=== PATIENT | male | born 1960 | race Caucasian/White ===

== ENCOUNTER 2018-12-04 11:17 | Emergency (ER) | payer MEDICAID ==
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
== END 2018-12-04 12:45 | disposition home or self-care (01) ==
LOC: JD.ED 11:17
DX: L03.115 Cellulitis of right lower limb (principal); L72.3 Sebaceous cyst; I10 Essential (primary) hypertension; Z79.899 Other long term (current) drug therapy
CPT/HCPCS: 99283

== ENCOUNTER 2019-02-10 13:13 | Emergency (ER) | payer SELFPAY ==
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
--- NOTE | 2019-02-10 14:21 | CR ---
Right hand: Four views of the right hand were obtained. Comparison: No previous study. Soft tissue swelling is identified. Mild deformity within the base of the distal phalanx of the 3rd digit is seen compatible with old healed fracture. No acute fracture, dislocation or other bony abnormality is seen. Impression: 1. Soft tissue swelling. Other finding believed to be incidental as noted above. 2. No acute bony abnormality is identified on right hand exam. Diagnostic code #2
== END 2019-02-10 14:45 | disposition home or self-care (01) ==
LOC: JD.ED 13:13
DX: M79.641 Pain in right hand (principal); I10 Essential (primary) hypertension; Z79.899 Other long term (current) drug therapy
CPT/HCPCS: 73130-26-RT; 73130-RT; 99283-25

== ENCOUNTER 2019-08-29 15:41 | Emergency (ER) | payer MEDICAID ==
[2019-08-29] MEDS ORDERED: predniSONE 20 MG Tab PO ONE (16:12)
--- NOTE | 2019-08-29 17:45 | EDM.PDOC ---
ED HPI GENERAL MEDICAL PROBLEM - General Chief Complaint: Allergic Reaction Stated Complaint: SKIN COMPLAINT/POSS ALLERGIC REACTION Time Seen by Provider: 08/29/19 15:53 Source of Information: Reports: Patient, RN Notes Reviewed - History of Present Illness INITIAL COMMENTS - FREE TEXT/NARRATIVE: 58 year old male comes in with rash, chest, abd, arms and legs that he has had for about 4 to 6 weeks. He ran out of his hydrochlorothiazide about a yr ago, started taking his mother's BP medication about 4 to 6 wks ago. Has had his rash mainly chest, neck, arms, legs for several wks. Stopped his mother's medication 2 days ago, prescribed HCTZ up in [place] yesterday and started taking that just yesterday. Also has been having mattering and crusting both eyes. was given a small sample tube of erythromycin ointment at time of eval yesterday but that is now gone - Related Data Allergies Allergy/AdvReac Type Severity Reaction Status Date / Time No Known Allergies Allergy Verified 08/29/19 15:51 Home Meds: Home Meds hydroCHLOROthiazide [Hydrochlorothiazide] 25 mg PO DAILY 60 Days #60 tab [Rx] predniSONE [Prednisone] 50 mg PO DAILY #6 tablet 08/29/19 [Rx] Past Medical History Cardiovascular History: Reports: Hypertension, Other (See Below) Other Cardiovascular History: pt states he's not been taking his anti-htn meds for a year Genitourinary History: Reports: None Musculoskeletal History: Reports: None Psychiatric History: Reports: Anxiety, Depression, Suicide Attempt - Infectious Disease History Infectious Disease History: Reports: Chicken Pox, Measles - Past Surgical History Male Surgical History: Reports: TURP-Transurethral Resection of Prostate Musculoskeletal Surgical History: Reports: Other (See Below) Other Musculoskeletal Surgeries/Procedures:: heel spur Social & Family History - Family History Family Medical History: Noncontributory - Tobacco Use Smoking Status *Q: Never Smoker - Caffeine Use Caffeine Use: Reports: None - Alcohol Use Days Per Week of Alcohol Use: 4 Number of Drinks Per Day: 6 Total Drinks Per Week: 24 - Recreational Drug Use Recreational Drug Use: No ED ROS ALLERGIC REACTION - Review of Systems Review Of Systems: See Below Constitutional: Denies: Fever, Chills HEENT: Reports: No Symptoms Respiratory: Denies: Shortness of Breath, Wheezing Cardiovascular: Denies: Chest Pain GI/Abdominal: Denies: Abdominal Pain, Nausea, Vomiting Musculoskeletal: Reports: No Symptoms Skin: Reports: Pruritis, Rash Neurological: Reports: No Symptoms ED EXAM GENERAL NO PERIP PULSE - Physical Exam Exam: See Below General Appearance: Alert, No Apparent Distress Eye Exam: Bilateral Eye: Conjunctival Injection (mild, no discharge or drainage) Throat/Mouth: Normal Inspection, Normal Oropharynx Head: Atraumatic Neck: Supple Respiratory/Chest: No Respiratory Distress, Lungs Clear, Normal Breath Sounds Cardiovascular: Regular Rate, Rhythm Extremities: No: Pedal Edema, Leg Pain, Redness Neurological: Alert, Oriented, No Motor/Sensory Deficits Skin Exam: Warm, Dry, Rash (mild maculopapular rash neck, chest proximal upper and lower extrem. ) Course - Vital Signs Last Recorded V/S: Last Vital Signs Temp 98.8 F 08/29/19 15:48 Pulse 87 08/29/19 15:48 Resp 16 08/29/19 15:48 BP 140/100 H 08/29/19 15:48 Pulse Ox 97 08/29/19 15:48 - Orders/Labs/Meds Labs: Laboratory Tests 08/29/19 08/29/19 Range/Units 16:20 16:20 WBC 9.38 H (4.23-9.07) K/mm3 RBC 5.36 (4.63-6.08) M/mm3 Hgb 15.5 (13.7-17.5) gm/dl Hct 47.1 (40.1-51.0) % MCV 87.9 (79.0-92.2) fl MCH 28.9 (25.7-32.2) pg MCHC 32.9 (32.2-35.5) g/dl RDW Std Deviation 41.2 (35.1-43.9) fL Plt Count 330 (163-337) K/mm3 MPV 9.8 (9.4-12.3) fl Neut % (Auto) 64.8 (34.0-67.9) % Lymph % (Auto) 18.6 L (21.8-53.1) % [place] % (Auto) 12.5 H (5.3-12.2) % Eos % (Auto) 3.0 (0.8-7.0) Baso % (Auto) 0.6 (0.1-1.2) % Neut # (Auto) 6.08 H (1.78-5.38) K/mm3 Lymph # (Auto) 1.74 (1.32-3.57) K/mm3 [place] # (Auto) 1.17 H (0.30-0.82) K/mm3 Eos # (Auto) 0.28 (0.04-0.54) K/mm3 Baso # (Auto) 0.06 (0.01-0.08) K/mm3 Sodium 139 (136-145) mEq/L Potassium 4.1 (3.5-5.1) mEq/L Chloride 103 (98-107) mEq/L Carbon Dioxide 24 (21-32) mEq/L Anion Gap 16.1 H (5-15) BUN 18 (7-18) mg/dL Creatinine 1.1 (0.7-1.3) mg/dL Est Cr Clr Drug Dosing 79.36 mL/min Estimated GFR (MDRD) > 60 (>60) mL/min BUN/Creatinine Ratio 16.4 (14-18) Glucose 96 (74-106) mg/dL Calcium 9.1 (8.5-10.1) mg/dL Total Bilirubin 0.3 (0.2-1.0) mg/dL AST 27 (15-37) U/L ALT 42 (16-63) U/L Alkaline Phosphatase 101 (46-116) U/L Total Protein 7.4 (6.4-8.2) g/dl Albumin 3.8 (3.4-5.0) g/dl Globulin 3.6 gm/dL Albumin/Globulin Ratio 1.1 (1-2) Meds: Medications Discontinued Medications Generic Name Dose Route Start Last Admin Trade Name Freq PRN Reason Stop Dose Admin Prednisone 40 mg 08/29/19 16:12 08/29/19 16:18 Prednisone PO 08/29/19 16:13 40 mg ONETIME ONE Administration Departure - Departure Time of Disposition: 17:41 Disposition: Home, Self-Care 01 Condition: Fair Clinical Impression: Skin rash Conjunctivitis Qualifiers: Conjunctivitis type: unspecified Laterality: bilateral Qualified Code(s): H10.9 - Unspecified conjunctivitis - Discharge Information Prescriptions: predniSONE [Prednisone] 50 mg PO DAILY #6 tablet Instructions: Allergies, Adult, [id number] Referrals: PCP,Not In Area [Primary Care Provider] - Forms: ED Department Discharge Additional Instructions: Prednisone 50 mg every morning for the next 6 days, prescription has been sent to [place] [facility] at the [facility] [employer] [facility], [facility]. Continue the hydrochlorothiazide as prescribed for you today. Warm compresses bilateral eyes about 3 times a day as best you can. If the mattering and crusting does not improve within 2 to 3 days than fill the prescription provided for more erythromycin ointment to be used 3 times daily. Medical provider in [place] next week if the rash is not much better within 3 to 5 days as expected. Sepsis Event Note - Evaluation Sepsis Screening Result: No Definite Risk - Focused Exam Date Exam was Performed: 08/30/19 Time Exam was Performed: 09:11
== END 2019-08-29 17:51 | disposition home or self-care (01) ==
LOC: JD.ED 15:41
DX: H10.9 Unspecified conjunctivitis (principal); R21 Rash and other nonspecific skin eruption; I10 Essential (primary) hypertension; Z79.899 Other long term (current) drug therapy
CPT/HCPCS: 36415; 80053; 85025; 99283; A9270